=== PATIENT | female | born 1945 | race Caucasian/White ===

== ENCOUNTER 2017-03-28 10:54 | Outpatient (CLI) | payer MEDICARE ==
--- NOTE | 2017-03-28 11:42 | XRAY Report ---
THREE-VIEW LEFT FOOT: 03/28/2017 CLINICAL INDICATION: Pain, edema. FINDINGS: AP, lateral, oblique views of the left foot demonstrate moderate osteoarthritis of the int erphalangeal joints and first metatarsophalangeal joint. Plantar calcaneal spurring is present. The re is no evidence of acute fracture or dislocation. No radiopaque foreign body is seen in the soft t issues. IMPRESSION: MODERATE OSTEOARTHRITIS. JOB #: [id number] EXT JOB #:[id number]
== END 2017-03-28 10:55 | disposition home or self-care (01) ==
LOC: DI 10:54
PROVIDERS: ATTEND Podiatrist
DX: M19.072 Primary osteoarthritis, left ankle and foot (principal)

== ENCOUNTER 2018-05-26 04:08 | Emergency (ER) | payer MEDICARE ==
--- NOTE | 2018-05-26 04:38 | ED Physician Documentation ---
PD HPI NECK PAIN - Stated complaint Stated Complaint: NECK PAIN - Chief complaint Chief Complaint: General - History obtained from History obtained from: Patient - History of Present Illness Timing - onset: How many hours ago (2-3 hours ago, woke her from sleep. has had similar, milder pain past 1-2 nights which resolved during the day. the pain was significantly worse tonight and she could not fall back asleep due to the pain. it is distinctly worse with movement. denies injury) Timing - duration: Hours Timing - details: Gradual onset, Constant, Waxing and waning Pain level now: 6 Location: Mid, Lower, Right, Left Quality: Pain Associated symptoms: No: Fever, Weakness, Numbness Improves with: Rest, Position Worsened by: Movement Similar symptoms before: Has not had sx before Recently seen: Not recently seen - Additional information Additional information: no relief with tylenol and ibuprofen Review of Systems Constitutional: denies: Fever Nose: reports: Reviewed and negative Throat: denies: Sore throat Cardiac: reports: Reviewed and negative Respiratory: reports: Reviewed and negative Musculoskeletal: reports: Neck pain. denies: Back pain Neurologic: denies: Focal weakness, Numbness, Headache PD PAST MEDICAL HISTORY - Past Medical History Cardiovascular: High cholesterol, Murmur, Arrhythmia Respiratory: None Endocrine/Autoimmune: None GI: Other : None HEENT: Chronic vision loss Psych: None Musculoskeletal: None Derm: None - Past Surgical History Past Surgical History: No - Present Medications Home Medications: Ambulatory Orders Medication Instructions Recorded Confirmed Atorvastatin [Lipitor] 10 mg PO DAILY 12/06/13 01/24/15 Aspirin [Aspir 81] 1 tab PO DAILY 01/24/15 01/24/15 Memantine [Namenda] 1 tab PO BID 01/24/15 01/24/15 Cholecalciferol [Vitamin D3] 05/26/18 Cyclobenzaprine [Flexeril] 10 mg PO TID PRN #20 tablet 05/26/18 Glucosamine/D3/Boswellia Ila 05/26/18 [Osteo Bi-Flex Tablet] HYDROcod/ACETAM 5/325 [[place] 5/325] 1 tab PO Q6H PRN #14 tablet 05/26/18 - Allergies Allergies/Adverse Reactions: Allergies Allergy/AdvReac Type Severity Reaction Status Date / Time Penicillins AdvReac Unknown Unknown Verified 05/26/18 04:16 - Social History Does the pt smoke?: No Smoking Status: Never smoker Does the pt drink ETOH?: No Does the pt have substance abuse?: No - Immunizations Immunizations are current?: No Immunizations: TDAP >10years/unknown - POLST Patient has POLST: No PD ED PE NORMAL - Vitals Vital signs reviewed: Yes - General General: Alert and oriented X 3, No acute distress (NAD at rest but appears to have painful discomfort when turning her head (rotating) to either side, particularly left rotation), Well developed/nourished - HEENT HEENT: Atraumatic, PERRL, EOMI, Pharynx benign - Neck Neck: Supple, no meningeal sign, No bony TTP, Thyroid normal - Cardiac Cardiac: RRR, No murmur - Respiratory Respiratory: No respiratory distress, Clear bilaterally - Back Back: No spinal TTP - Derm Derm: No rash - Neuro Neuro: No motor deficit, No sensory deficit Results - Vitals Vitals: Vital Signs - 24 hr 05/26/18 05/26/18 04:12 06:33 Temperature 36.3 C L Heart Rate 58 L 63 Respiratory 20 15 Rate Blood Pressure 158/77 H 134/71 H O2 Saturation 100 100 Oxygen O2 Source Room air - Rads (name of study) cervical spine xrays Radiology: Prelim report reviewed, See rad report PD MEDICAL DECISION MAKING - ED course Complexity details: reviewed results, re-evaluated patient, considered differential, d/w patient, d/w family ED course: patient reported significant improvement after PO vicodin and flexeril, and had good neck ROM without exacerbation of the pain with rotation bilaterally Departure - Departure Disposition: 01 Home, Self Care Clinical Impression: Neck pain Condition: Good Instructions: ED Neck Pain No Trauma Follow-Up: SANDRITA LOPEZ MD [Primary Care Provider] - Prescriptions: Cyclobenzaprine [Flexeril] 10 mg PO TID PRN #20 tablet PRN Reason: Spasms HYDROcod/ACETAM 5/325 [[place] 5/325] 1 tab PO Q6H PRN #14 tablet PRN Reason: Pain Discharge Date/Time: 05/26/18 06:34
[2018-05-26] MEDS ORDERED: HYDROcod/ACETAM 5/325 MG TABLET PO STA (04:51)
[2018-05-26] MEDS ORDERED: CYCLOBENZAPRINE 10 MG TABLET PO STA (04:51)
--- NOTE | 2018-05-26 05:50 | XRAY Report ---
Reason: neck pain Procedure Date: 05/26/2018 Accession Number: [id number] / [id number] Procedure: XR - Cervical Spine 2 View CPT Code: FULL RESULT: EXAM: CERVICAL SPINE RADIOGRAPHY EXAM DATE: 05/26/2018 05:21 AM. CLINICAL HISTORY: Neck pain. COMPARISONS: None. TECHNIQUE: 3 views. FINDINGS: Alignment: Unremarkable. Bones: The cervical vertebral bodies and posterior elements are visualized from the skull base through C7-T1. Osteopenia. No fracture seen. Disks: Degenerative disk disease from C4-T1. Facets: Degenerative joint disease in the lower cervical spine. Soft Tissues: No prevertebral soft tissue swelling. Visualized lung apices appear clear. IMPRESSION: 1. Osteopenia and multilevel degenerative changes. 2. No acute fracture or dislocation seen. RADIA
[2018-05-26 06:34] VITALS: BP 134/71
== END 2018-05-26 06:34 | disposition home or self-care (01) ==
LOC: ED 04:08
DX: M54.2 Cervicalgia (principal); Z79.82 Long term (current) use of aspirin
CPT/HCPCS: 72040; 99283; A9270

== ENCOUNTER 2021-04-19 07:00 | Outpatient (CLI) | payer MEDICARE ==
--- NOTE | 2021-04-19 19:44 | XRAY Report ---
PROCEDURE: Left knee x-ray INDICATIONS: SPRAIN OF MEDIAL COLLATERAL LIGAMENT OF LEFT KNEE TECHNIQUE: 3 views of the left knee(s) were acquired. COMPARISON: None. FINDINGS: Bones: No fractures or dislocations. No suspicious bony lesions. Moderate medial and lateral compar tmental joint space narrowing with stippled chondrocalcinosis calcification present. There is moderat e patellofemoral joint space narrowing noted as well. Generalized decreased osseous mineralization pr esent. Soft tissues: Small joint effusion. No suspicious soft tissue calcifications. IMPRESSION: 1. Moderate tricompartmental osteoarthritis with chondrocalcinosis 2. Osteopenia Reviewed by: Kash Mullins MD on 04/19/2021 6:42 PM [place] Approved by: Kash Mullins MD on 04/19/2021 6:42 PM [place] Station ID: [id number]
== END 2021-04-19 23:59 | disposition home or self-care (01) ==
LOC: DI.S 07:00
PROVIDERS: ATTEND Emergency Medicine
DX: S83.412A Sprain of medial collateral ligament of left knee, initial encounter (principal); M17.12 Unilateral primary osteoarthritis, left knee; M85.862 Other specified disorders of bone density and structure, left lower leg

== ENCOUNTER 2021-10-31 12:43 | Outpatient (CLI) | payer MEDICARE ==
--- NOTE | 2021-10-31 13:20 | DEXA Report ---
PROCEDURE: Dexa Spine and/or Hip INDICATIONS: OSTEOPOROSIS TECHNIQUE: Dual energy x-ray absorptiometry (DXA) was performed on a Companion Canine System. Regions measur ed are the AP Spine, femoral neck, and if needed forearm. COMPARISON: None. FINDINGS: Lumbar Spine: Bone Mineral Density 0.788 g/cm/cm,T score -3.3, osteoporosis Left Hip: Bone Mineral Density 0.657 g/cm/cm,T score -2.8, osteoporosis Left Femoral Neck: Bone Mineral Density 0.577 g/cm/cm, T score -3.3, osteoporosis (T score greater or equal to -1.0: NORMAL) (T score from -1.1 to -2.4: OSTEOPENIA) (T score less than or equal to -2.5 to: OSTEOPOROSIS) Impression: Bone mineral density as detailed above. Patients with diagnosis of osteoporosis or osteopenia should have regular bone mineral density assess ment. For those eligible for Medicare, routine testing is allowed once every 2 years. Testing frequ ency can be increased for patients who have rapidly progressing disease or for those who are receivin g medical therapy to restore bone mass. Reviewed by: Troy Kincaid MD on 10/31/2021 1:19 PM PDT Approved by: Troy Kincaid MD on 10/31/2021 1:19 PM PDT Station ID: [id number]
== END 2021-10-31 12:44 | disposition home or self-care (01) ==
LOC: DI 12:43
PROVIDERS: ATTEND Nurse Practitioner Family
DX: M81.0 Age-related osteoporosis without current pathological fracture (principal)